=== PATIENT | male | born 1955 | race Caucasian/White ===

== ENCOUNTER 2017-11-09 08:44 | Emergency (ER) | payer OTHER ==
[~2017-11-09] VITALS: Ht 182.9 cm; Wt 123.6 kg
[~2017-11-09 08:44] MED LIST: ACYCLOVIR400 MG PO; ALTACE10 M1 PO; ALTACE10 MG PO; AMBIEN10 MG PO; ASPIR 8181 M1 PO; ASPIR-LOW81 MG PO; ASPIRIN EC325 MG PO; ATORVASTATIN CA40 MG PO; CLOPIDOGREL75 MG PO; CYANOCOBALAM1000 MCG PO; ECOTRIN325 MG PO; Ecotrin PO; FISH OIL300 MG PO; FUROSEMIDE20 MG PO; Fish Oil PO; GLUCOPHAGE XR1000 MG PO; IMDUR60 MG PO; ISOSORBIDE MONO60 MG PO; Imdur PO; LIPITOR40 MG PO; Lasix PO; Lipitor PO; METFORMIN HCL1000 MG PO; METOPROLOL TART50 MG PO; NITROSTAT0.4 MG SL; OXYCODONE HCL15 MG PO; OXYCODONE-APAP1 EAC6 PO; PANTOPRAZOLE SO40 MG PO; PERCOCET 7.5-31 EACH PO; PROTONIX40 MG PO; RAMIPRIL10 MG PO; TOPROL XL50 MG PO; TRADJENTA5 MG PO; Toprol XL PO; VITAMIN C1000 MG PO; VITAMIN D31000 UNI2 PO; ZETIA10 MG PO
[2017-11-09] MEDS ORDERED: DILAUDID2 MG PO (10:35)
[2017-11-09 10:57] VITALS: BP 143/99
== END 2017-11-09 10:58 | disposition home or self-care (01) ==
LOC: EME 08:44
DX: S46.912A Strain of unspecified muscle, fascia and tendon at shoulder and upper arm level, left arm, initial encounter (principal); W10.9XXA Fall (on) (from) unspecified stairs and steps, initial encounter; Y92.008 Other place in unspecified non-institutional (private) residence as the place of occurrence of the external cause; G89.29 Other chronic pain
CPT/HCPCS: 73030; 99281; 99284

== ENCOUNTER 2018-02-17 10:16 | Emergency (ER) | payer OTHER ==
[~2018-02-17] VITALS: Ht 182.9 cm; Wt 124.2 kg
[~2018-02-17 10:16] MED LIST changes: +DILAUDID2 MG PO
[2018-02-17 11:33] VITALS: BP 122/76
== END 2018-02-17 11:35 | disposition home or self-care (01) ==
LOC: EME 10:16
DX: M25.561 Pain in right knee (principal); G89.29 Other chronic pain; I10 Essential (primary) hypertension; E78.5 Hyperlipidemia, unspecified; E11.9 Type 2 diabetes mellitus without complications; I25.2 Old myocardial infarction; F17.200 Nicotine dependence, unspecified, uncomplicated
CPT/HCPCS: 73564; 99281; 99284